=== PATIENT | female | born 1995 | race Caucasian/White ===

== ENCOUNTER 2020-04-26 18:59 | Inpatient (IN) ==
[2020-04-26] MEDS ORDERED: PENICILLIN G POTASSIUM 3 MU in DEXTROSE 5% 100 ML IV PRN (19:36)
[2020-04-26] MEDS ORDERED: OXYTOCIN 30 UNITS/500 ML BAG IV PRN ×2 (19:36→21:45)
--- NOTE | 2020-04-26 19:41 | History & Physical Report ---
Date of Service April 26, 2020 Assessment & Plan (1) Supervision of normal intrauterine in primigravida: - heart rate is category 2 with accelerations and variability -Spontaneous rupture of membranes with digital examination -GBS positive will start penicillin per protocol -Patient desires epidural, anesthesia will be notified -Anticipate vaginal delivery History of Present Illness Chief Complaint: The patient is a 25-year-old 1 para 0 with an EDC of 01 May by 23-week ultrasound, who is admitted at 39+ weeks gestational age in active labor. The patient has been having prodromal contractions for the last 48 hours. The contractions increased in intensity. Patient denies rupture membranes or vaginal bleeding. The patient's first visit was at 23 weeks gestational age. She had an anatomy ultrasound which dated the . Laboratory values for the show blood type of B-, antibody negative, she received RhoGam on 07 February, hepatitis B negative, rubella immune, she declined genetic screening, she had a normal 1 hour Glucola. The patient had GBS bacteria diagnosed at her initial laboratory evaluation. Primary Care Provider: Emma Schilling PA-C Allergies Allergy/AdvReac Type Severity Reaction Status Date / Time No Known Drug Allergies Allergy Unknown Verified 04/26/20 19:15 Home Medications Home Medications Medication Instructions Recorded Confirmed Type prenat.vits,stanford,[id number] 1 tab PO DAILY 01/03/20 04/26/20 History Patient History Medical History (Updated 04/26/20 @ 19:36 by Chandu Treviño Jr, MD, FACOG) False labor No pertinent past medical history Varicella vaccine Surgical History H/O oral surgery Social History (Updated 12/27/19 @ 14:05 by Simran Wyatt) Preferred Language: Italian [employer] Instructor Required: No Beliefs That Will Affect Care: None marital status: Single marital status details: Alfredo Moreno (28) [phone] Current Living Situation: Significant Other Current Living Situation Comment: lives with mom, 2 dogs Other Information That Helps Us Care for You: No Feels Safe at Home: Yes Safety Concerns: Feels Safe At This Time Smoking Status: Never smoker Second Hand Exposure: No ; Hx Alcohol Use: No Hx Substance Use: No Physical Exam Constitutional: WD/WN, vitals as above Respiratory: Auscultation: lungs clear to auscultation bilaterally Cardiovascular: RRR, no murmur, no edema Extremities: no calf tenderness Gastrointestinal (Abdomen): Gravid, vertex, positive heart tones, estimated weight of 7-1/2 pounds, positive palpable contractions Genitourinary: Cervix: 5 to 6 cm / 100% station/0 station/spontaneous rupture membranes clear fluid with examination Results & Data Vital Signs (Past 12 Hours) Vital Signs Temp Pulse Resp BP 04/26/20 19:16 98.6 F 18 04/26/20 19:13 96 H 131/62 Coding Level of Care Code None Diagnoses Supervision of normal intrauterine in primigravida Z34.00
[2020-04-26] MEDS: LACTATED RINGER'S 1,000 ML IV PRN ×2 (19:48→20:52)
[2020-04-26] MEDS ORDERED: BUPIVACAINE 0.25% 30 ML VIAL ONE (19:50)
[2020-04-26] MEDS ORDERED: ePHEDrine sulfate 50 MG/ML AMP ONE (19:50)
[2020-04-26] MEDS ORDERED: fentaNYL citrate 100 MCG/2 ML VIAL ONE (19:50)
[2020-04-26] MEDS ORDERED: fentaNYL 2MCG/ML ROPIV 1.25MG/ML 100 ML BAG EPI ONE (19:51)
[2020-04-26 19:57] LABS: Hematocrit (blood only) 37.8 % (37-47); Mean Corpuscular Volume 87.3 fL (80-100); Mean Platelet Volume 9.6 fL (7.4-10.4); Platelet Count 222 K/uL (130-400); RDW Coefficient of Variation 13.2 % (11.5-14.5); RDW Standard Deviation 42.4 fL (36.4-46.3); Red Blood Count 4.33 M/uL (4.2-5.4); White Blood Count 10.97 K/uL (4.8-10.8)
[2020-04-26] MEDS ORDERED: PENICILLIN G POTASSIUM 6 MU in DEXTROSE 5% 250 ML IV ONE (20:00)
--- NOTE | 2020-04-26 20:11 | Anesthesiology Consultation ---
Date of Service April 26, 2020 Assessment & Plan (1) Encounter for pre-operative examination: Chart Review Chart Review: Acceptable Risk for Labor Epidural History Height/Weight Height: 5 ft 1 in Weight: 65.317 kg Allergies Allergy/AdvReac Type Severity Reaction Status Date / Time No Known Drug Allergies Allergy Unknown Verified 04/26/20 19:15 Medications Home Medications Medication Instructions Recorded Confirmed Last Taken prenat.vits,stanford,jip-wyjb-kfnar 1 tab PO DAILY 01/03/20 04/26/20 04/26/20 Active Medications Generic Name Dose Route Start Last Admin Trade Name Freq PRN Reason Stop Dose Admin Lactated Ringer's 1,000 mls @ 125 mls/hr 04/26/20 19:36 04/26/20 19:48 Lr IV 04/28/20 19:35 125 mls/hr .Q8H PRN Administration L&D Protocol Protocol Penicillin G Potassium 6 mu/ 262 mls @ 262 mls/hr 04/26/20 20:00 04/26/20 20:03 Dextrose IV 04/26/20 20:59 262 mls/hr 2000 ONE Administration Past Medical History Medical History False labor No pertinent past medical history Varicella vaccine Past Family History Family History Uncle Diabetes Grandmother Diabetes Past Surgical History Surgical History H/O oral surgery Social History Smoking Status: Never smoker Hx Alcohol Use: No Hx Substance Use: No substance use type: does not use Physical Exam Vital Signs Last Vital Signs Temp 37.0 C 04/26/20 19:16 Pulse 94 H 04/26/20 20:07 Resp 18 04/26/20 19:16 BP 131/62 04/26/20 19:13 Pulse Ox 95 04/26/20 20:07 Testing Laboratory Results 04/26/20 19:48
[2020-04-26 20:14] LABS: Mean Corpuscular Hgb Conc 34.4 g/dL (32-36)
[2020-04-26] MEDS ORDERED: fentaNYL 2MCG/ML ROPIV 1.25MG/ML 100 ML BAG EPI PRN (21:32)
[2020-04-26] MEDS ORDERED: ONDANSETRON INJ 2 MG/ML 2 ML VIAL IV PRN (21:32)
[2020-04-26] MEDS ORDERED: ePHEDrine sulfate 50 MG/ML AMP IV PRN (21:32)
[2020-04-26] MEDS ORDERED: NALOXONE HCL 0.4 MG/1 ML VIAL/CARP IV PRN (21:32)
[2020-04-26] MEDS ORDERED: NALOXONE HCL 1 MG in SODIUM CHLORIDE 0.9% 1000ML 1,000 ML IV PRN (21:32)
--- NOTE | 2020-04-26 21:47 | Labor Progress Brief Note ---
Date of Service April 26, 2020 Subjective Reason For Note: Routine Evaluation comfortable with epidural Assessment & Plan (1) Supervision of normal intrauterine in primigravida: - tracing Cat II - ctx's spaced after epidural - will start pitocin augmentation for arrested dilation Physical Exam Genitourinary: Cervix: no change Results & Data Vital Signs (Past 12 Hours) Vital Signs Temp Pulse Resp BP Pulse Ox 04/26/20 21:42 73 97 04/26/20 21:37 73 96 04/26/20 21:32 75 97 04/26/20 21:31 85 90/53 L 04/26/20 21:27 75 96 04/26/20 21:22 79 97 04/26/20 21:17 89 97 04/26/20 21:14 88 91/50 L 04/26/20 21:12 89 97 04/26/20 21:09 81 93/51 L 04/26/20 21:07 86 97 04/26/20 21:04 86 93/50 L 04/26/20 21:02 85 97 04/26/20 21:01 86 97/52 L 04/26/20 21:00 18 04/26/20 20:57 97 H 96 04/26/20 20:54 86 97/55 L 04/26/20 20:52 101 H 97 04/26/20 20:50 93 H 108/60 04/26/20 20:47 90 96 04/26/20 20:45 16 04/26/20 20:44 94 H 101/56 L 04/26/20 20:42 97 H 96 04/26/20 20:40 16 04/26/20 20:38 104 H 98/60 L 04/26/20 20:37 95 H 97/64 L 95 04/26/20 20:35 105 H 94/61 L 04/26/20 20:33 96 H 111/66 04/26/20 20:32 93 H 96 04/26/20 20:30 99.0 F 92 H 18 116/71 04/26/20 20:27 96 H 118/64 97 04/26/20 20:22 110 H 96 04/26/20 20:17 103 H 97 04/26/20 20:12 116 H 98 04/26/20 20:07 94 H 95 04/26/20 20:02 96 H 96 04/26/20 19:57 96 H 97 04/26/20 19:52 100 H 97 04/26/20 19:16 98.6 F 18 04/26/20 19:13 96 H 131/62 Coding Level of Care Code None Diagnoses Supervision of normal intrauterine in primigravida Z34.00
--- NOTE | 2020-04-27 02:38 | Delivery Summary ---
Vaginal Delivery Summary Date of Service April 27, 2020 Vaginal Delivery Summary Findings: Viable female with Apgars of 8 and 9, arterial and venous cord gases pending. Baby delivered over midline episiotomy. Placenta delivered spontaneously. Episiotomy repaired with 4-0 Vicryl in a routine fashion. Estimated blood loss 300 cc. Labor note: The patient is a 25-year-old 1 para 0 with an EDC of 01 May by 23-week ultrasound, who is admitted at 39+ weeks gestational age in active labor. The patient has been having prodromal contractions for the last 48 hours. The contractions increased in intensity. Patient denies rupture membranes or vaginal bleeding. The patient's first visit was at 23 weeks gestational age. She had an anatomy ultrasound which dated the . Laboratory values for the show blood type of B-, antibody negative, she received RhoGam on 07 February, hepatitis B negative, rubella immune, she declined genetic screening, she had a normal 1 hour Glucola. The patient had GBS bacteria diagnosed at her initial laboratory evaluation. Upon admission the patient was 5 cm dilated 100% effaced and 0 station. Spontaneous rupture of membranes with examination. With the positive GBS status the patient was started on penicillin per protocol. Anesthesia was consulted and an epidural was placed. After placement of the epidural the patient's contractions markedly spaced out. There had been no cervical change and Pitocin augmentation was initiated. Over the next 3 to 4 hours the patient progressed to full dilatation and began her second stage. She pushed for approximately 15 minutes delivering the viable with description as above. Cord was clamped and cut, cord blood samples and cord gas samples were obtained. Placenta was delivered spontaneously. Midline episiotomy was repaired with 4-0 Vicryl in a routine fashion. Estimated blood loss was 300 cc. Sponge and needle count was correct.
[2020-04-27 03:00] LABS: Base Excess Cord Arterial Bld -3.5 mEq/L (-9-1.8); Base Excess Cord Venous Blood -0.7 mEq/L (-7.7-1.9); CO2 Cord Arterial Blood 48 mmHg (39.1-73.5); Cord Venous Blood HCO3 24 mmol/L (18.4-26.8); Cord Venous Blood PCO2 41 mmHg (30.4-57.2); Cord Venous Blood PO2 30 mmHg (14.1-43.3); Cord Venous Blood pH 7.39 (7.20-7.44); HCO3 Cord Arterial Blood 23 mmol/L (19.7-28.5); PO2 Cord Arterial Blood 24 mmHg (4.1-31.7)
[2020-04-27] MEDS ORDERED: ACETAMINOPHEN W/CODEINE #3 1 TAB PO PRN (04:12)
[2020-04-27] MEDS ORDERED: IBUPROFEN 600 MG TAB PO PRN (04:12)
[2020-04-27] MEDS ORDERED: ACETAMINOPHEN 325 MG TAB PO PRN (04:12)
[2020-04-27] MEDS ORDERED: OXYTOCIN 30 UNITS/500 ML BAG IV PRN (04:12)
[2020-04-27] MEDS ORDERED: DIPHTHERIA/TETANUS/PERTUSSIS 0.5 ML SYR/VIAL IM ONE (04:12)
[2020-04-27] MEDS ORDERED: BENZOCAINE 20% AER SPR 82.5 GM CAN EXT PRN (04:12)
[2020-04-27] MEDS ORDERED: HYDROCORTISONE ACETATE 25 MG SUPP PR PRN (04:12)
[2020-04-27] MEDS ORDERED: SUPERCREAM 0.870% 15 GM JAR EXT PRN (04:12)
--- NOTE | 2020-04-27 09:07 | Anesthesia Procedure Note ---
Date of Service April 27, 2020 Anesthesia Post Epidural Note Vital Signs Vital Signs: Temp Pulse Resp BP Pulse Ox 36.8 C 102 H 20 114/75 94 04/27/20 05:40 04/27/20 05:40 04/27/20 05:40 04/27/20 05:40 04/27/20 02:16 Notes Mental Status: alert / awake / arousable and participated in evaluation Patient Amnestic to Procedure: No Nausea / Vomiting: adequately controlled Pain: adequately controlled Airway Patency, RR, SpO2: stable & adequate BP & HR: stable & adequate Hydration State: stable & adequate Neuraxial Anesthesia: was administered and sensory block is resolving Anesthetic Complications: no major complications apparent and Pt Satisfied with anesthetic care Epidural: Removed without complications and With tip intact
[2020-04-27] MEDS: DOCUSATE SODIUM 100 MG CAP PO SCH ×2 (09:13→20:25)
[2020-04-27] MEDS: FERROUS SULFATE 325 MG TAB PO SCH (09:13)
[2020-04-27] MEDS: PRENATAL VITAMIN 1 TAB PO SCH (09:13)
--- NOTE | 2020-04-28 06:40 | Obstetrical Progress Note ---
Date of Service <Paco Bazzigarth - Last Filed: 04/28/20 06:40> April 28, 2020 Assessment & Plan <Paco Bangura DO - Last Filed: 04/28/20 06:40> (1) : -PPD#1 -Vitals reviewed, WNL - GBS +, Blood Type B- - Received Pen G on admission - Had received Rhogam on 02/08/20 - Clinically stable. - Feels well today. Eating well, voiding well, ambulating well. - Pain well controlled. - Routine post- care - After discharge will have [address] Kamila Gaines #:: 1 Subjective <Paco Bazzigarth - Last Filed: 04/28/20 06:40> Ambulation: ambulating normally Voiding: no voiding problems Passing Gas:: Yes Diet Tolerance:: regular diet Lochia:: Moderate Feeding Type:: breast feeding Current Pain Level(1-10): 1 (not requiring analgesics) Patient is a 25 PPD#1. Patient states that she is feeling well today and that her pain is well controlled. She has no other complaints at this time. Constitutional: no fever and no chills Respiratory: no cough, no dyspnea and no wheezing Cardiovascular: no chest pain, no dyspnea, no palpitations, no edema and no calf pain Breast: no breast pain Gastrointestinal: no abdominal pain, no nausea and no vomiting Genitourinary (female): no dysuria and no difficulty urinating Neurologic: no headache(s) Physical Exam <Paco Bangura DO - Last Filed: 04/28/20 06:40> Constitutional WD/WN, vitals as above Respiratory normal respiratory effort, lungs clear to auscultation Cardiovascular Rate/Rhythm: regular rate and regular rhythm Heart Sounds: normal S1 and normal S2; no click, no gallop, no murmur and no cardiac rub Extremities: no calf tenderness and no edema Gastrointestinal (Abdomen) Inspection/Auscultation: abdomen normal to inspection and normal bowel sounds Percussion/Palpation: abdomen soft; abdomen nontender Genitourinary OB Exam Abdomen: + fundal height Fundus: + firm and + relation to umbilicus (at level of umbilicus ); not tender and not boggy Results & Data <Paco Georgessalo - Last Filed: 04/28/20 06:40> Vital Signs (Past 12 Hours) Vital Signs Temp Pulse Resp BP Pulse Ox 04/28/20 03:10 36.6 C 87 16 93/61 L 98 04/27/20 23:25 36.8 C 81 16 106/68 98 04/27/20 20:25 36.9 C 102 H 18 104/67 <Eugenie García MD, FACOG - Last Filed: 04/28/20 07:27> Co-Signing Physician Notes Resident Physician Supervision Note: I interviewed and examined the patient. Discussed with Dr. Bangura and agree with findings and plan as documented in the note. Any exceptions or clarifications are listed here: Doing well. Routine care. Documented By: Eugenie García MD, FACOG Resident Activity Tracking <Paco Bangura DO - Last Filed: 04/28/20 06:40> Resident Involvement: Resident Care Provided Care Provided: OB Delivery
[2020-04-28] MEDS: FERROUS SULFATE 325 MG TAB PO SCH (07:47)
[2020-04-28] MEDS: PRENATAL VITAMIN 1 TAB PO SCH (07:47)
[2020-04-28] MEDS: DOCUSATE SODIUM 100 MG CAP PO SCH (07:47)
[2020-04-28] MEDS ORDERED: bisacodyL 5 MG TABEC PO SCH (20:00)
== END 2020-04-28 13:30 | disposition home or self-care (01) | DRG 807 ==
LOC: OPB 18:59 → 4S1 19:00 → 4S2 04-27 05:25